=== PATIENT | male | born 1975 | race Two or more races ===

== ENCOUNTER 2016-09-29 23:12 | Emergency (ER) | payer BC, OTHER ==
[2016-09-29] MEDS ORDERED: IOPAMIDOL 370 (76%) 100 ML VIAL IV ONE (23:13)
[2016-09-30 00:54] LABS: ABSOLUTE NEUTROPHIL COUNT 3.9 K/mm3 (1.8-7.7); BASO % 0.2 % (0.2-1.0); EOS % 0.2 % (0.9-2.9); HEMATOCRIT 45.9 % (32.0-52.0); HEMOGLOBIN 14.9 gm/l (14.0-18.0); IMM NEUT% 0.4 % (0-1); LYMPH # 0.6 (1.0-4.8); LYMPH % 12.9 % (15-45); MEAN CELL VOLUME 86.6 fl (80.0-94.0); MEAN CORPUSCULAR HEMOGLOBIN 28.1 pg (27.0-31.0); MEAN CORPUSCULAR HGB CONC 32.5 g/dl (33.0-37.0); MEAN PLATELET VOLUME 11.1 fl (7.4-10.4); MONO % 0.2 % (4-12); NEUT % 86.1 % (43-75); PLATELET COUNT 158 K/mm3 (130-400)
[2016-09-30 01:13] LABS: ALB/GLOB RATIO 1.4 (>1.0); ALBUMIN 4.1 gm/dL (3.5-5.7); CALCIUM 9.1 mg/dL (8.6-10.3)
[2016-09-30] MEDS ORDERED: SODIUM CHLORIDE 0.9% 1,000 ML ONE (01:22)
[2016-09-30] MEDS ORDERED: ACETAMINOPHEN 500 MG TABLET ONE (01:22)
[2016-09-30] MEDS ORDERED: ONDANSETRON 4 MG/2ML 2 ML VIAL ONE (01:22)
[2016-09-30] MEDS ORDERED: IBUPROFEN 800 MG TABLET ONE (01:23)
[2016-09-30 01:46] LABS: LIPASE 18 U/L (11-82)
[2016-09-30 02:02] LABS: SPECIFIC GRAVITY 1.015 (1.001-1.030); URINE BILIRUBIN NEGATIVE (NEGATIVE); URINE BLOOD NEGATIVE (NEGATIVE); URINE GLUCOSE (UA) NEGATIVE (NEGATIVE); URINE LEUKOCYTE ESTERASE NEGATIVE (NEGATIVE); URINE NITRITE NEGATIVE (NEGATIVE); URINE PROTEIN NEGATIVE (NEGATIVE); URINE UROBILINOGEN NORMAL (0-1 mg/dl)
[2016-09-30 02:10] LABS: URINE APPEARANCE CLEAR; URINE COLOR YELLOW
--- NOTE | 2016-09-30 08:04 | RAD ---
Exam: Two-view chest COMPARISON: None INDICATION: Fever, chills and neck pain. FINDINGS: PA and lateral views of the chest were obtained. Cardiac silhouette is within normal limits. Lungs are well-inflated. Bronchovascular markings are at the upper limits of normal. There is no rich pulmonary edema, focal airspace disease or pleural effusion. Bones of the chest wall within normal limits. IMPRESSION: No acute pulmonary process.
--- NOTE | 2016-09-30 08:10 | CT ---
Exam: CT abdomen and pelvis with contrast COMPARISON: None INDICATION: Fever, chills and neck pain for one month. TECHNIQUE: CT examination of the abdomen and pelvis was obtained following the administration of 100 mL Isovue-370 intravenous contrast. FINDINGS: The bowel is unremarkable and there is no bowel obstruction, free air or free intraperitoneal fluid. There is no pelvic lymphadenopathy or fluid collections. Small to moderate fat-containing bilateral inguinal hernias are noted. Small to moderate fat-containing periumbilical hernia is also appreciated. Hepatic steatosis is suggested.. Gallbladder is partially contracted in this nonfasting state. Spleen is normal in size. Subcapsular hypodense lesion is noted within the anterior aspect of the spleen, too small to characterize but likely of no clinical concern. The pancreas, kidneys and adrenal glands are unremarkable. Lung bases are clear. Bilateral pars defects are noted at L5, where there is trace anterolisthesis of L5 on S1. No worrisome lytic or blastic osseous lesion is identified. IMPRESSION: No acute findings in the abdomen or pelvis. Incidental findings as above. Preliminary report transmitted to the emergency department from [facility] at 0322 hours 09/30/2016.
== END 2016-09-30 03:52 | disposition home or self-care (01) ==
LOC: ED 23:12
DX: K40.20 Bilateral inguinal hernia, without obstruction or gangrene, not specified as recurrent (principal); B34.9 Viral infection, unspecified; Z79.899 Other long term (current) drug therapy; Z79.1 Long term (current) use of non-steroidal anti-inflammatories (NSAID)
CPT/HCPCS: 83605; 83690; 82150; 85025; 82550; 80053; 81003; 84484; 71020; 74177; 87804; 99284 ×2; 96374; 96361 ×2; A9270 ×2; J2405; J7030; Q9967